=== PATIENT | female | born 1945 | race Caucasian/White ===

== ENCOUNTER 2017-01-26 09:32 | Observation (INO) | payer MEDICARE ==
[2017-01-26] VITALS (12 sets, daily range): BP systolic 89–180; BP diastolic 43–96; PULSE 63–98; RESP 14–18; O2SAT 94–97
[~2017-01-26] VITALS: Ht 160 cm; Wt 71.4 kg
--- NOTE | 2017-01-26 10:04 | DRSVH ---
PROCEDURE: X-RAY CHEST ONE VIEW, PORTABLE ([id number]) INDICATIONS: PAIN TECHNIQUE: One view of the chest was acquired. COMPARISON: None. FINDINGS: Surgical changes and devices: None. Lungs and pleura: No pleural effusions or pneumothorax. Lungs are clear. Mediastinum: Mediastinal contours appear normal. Heart size is normal. Bones and chest wall: No suspicious bony lesions. Overlying soft tissues appear unremarkable. IMPRESSION: Negative chest. No acute cardiopulmonary process is evident. Dictated by: Antonino Barney M.D. on 01/26/2017 at 9:02 Approved by: Antonino Barney M.D. on 01/26/2017 at 9:03
[2017-01-26 10:24] LABS: BASOPHILS % (AUTO) 0.7 % (0-3); MONOCYTES % (AUTO) 6.6 % (4-12); Mean Corpuscular Hemoglobin 30.6 pg (27.0-35.0); Mean Corpuscular Volume 90.6 fL (81-100); NEUTROPHILS % (AUTO) 74.3 % (40-74); Platelet Count 202 bil/L (150-400)
[2017-01-26 10:46] LABS: TROPONIN T 0.01 ug/L (0.0-0.011)
--- NOTE | 2017-01-26 10:59 | ED.REPORT ---
HPI-Chest Pain 40 and Over Date of Service January 26, 2017 ED Provider: Pam Lovell MD The patient is a 71 year old female with history of takotsubo cardiomyopathy, arthrosclerotic coronary artery disease, SVT s/p cardiac ablation, hypothyroidism, fibromyalgia, and lupus, who presents to the emergency department complaining of left shoulder pain that was present when she woke up this morning. After onset she also developed chest pressure, left arm numbness/ tingling, nausea, diaphoresis, and shortness of breath. Her pain has worsened since onset and has also started hurting between her shoulder blades, neck, and jaw. She took 2 aspirin with no relief. Nursing Notes Stated Complaint: CHEST PAIN Chief Complaint: Chest Pain Nursing Notes Reviewed: Yes Allergies: Coded Allergies: Sulfa (Sulfonamide Antibiotics) (Verified Allergy, Severe, anaphylaxis, 01/26/17) Scheduled Aspirin (Aspirin) 81 Mg Tablet 81 MG PO DAILY Levothyroxine (Levothyroxine) 25 Mcg Tablet 25 MCG PO DAILY Multivitamin (Multi Vitamin Daily) 1 Each Tablet 1 EACH PO DAILY Sertraline HCl (Zoloft) 50 Mg Tablet 25 MG PO DAILY Miscellaneous Medications Gluc/Edgard-MSM#2/C/D3/Ramez/Born (Iyuwqsenwa-Yiurhtalwko-LZP Tab) 1 Each Tablet 1 EACH PO Ubidecarenone (Co Q-10) 10 Mg Capsule 10 MG PO General Time Seen by MD: 09:57 Chief Complaint Other (left shoulder pain) Hx Obtained From: Patient Arrived By: Walk-in Sudden in Onset?: Yes Onset Occurred: 1 - 4 hours ago Symptom Duration: Since onset Location: : Shoulder left Quality: Painful Severity: Current: Moderate Severity: Maximum: Severe Recent Healthcare: No recent doctor visit, No recent hospitalization Similar Sx Previous: No Past Medical History Past Medical History Takotsubo cardiomyopathy Arthrosclerotic coronary artery disease with mild to moderate non-obstructive plaque Endometriosis s/p hysterectomy Fibromyalgia Lupus - in remission Hx of SVT and ablation Hypothyroidism Past Surgical History Hysterectomy Cardiac ablation Thyroidectomy Family History Reports: Diabetes mellitus, Hypertension Smoking History Never Smoker Social History Alcohol Use: 1-3 per week Drug Use: Denies drug use Other Social History: Local resident Occupation Office work Ambulatory Status Independent Review of Systems Review of Systems Note: +jaw pain Respiratory: Reports: Shortness of breath Cardiovascular: Reports: Chest pain GI: Reports: Nausea Musculoskeletal: Reports: Back pain, Joint pain, Neck pain Skin: Reports Diaphoresis Neurologic: Reports: Numbness (and tingling in left arm) Complete sys rev & neg: except as marked. Physical Exam Initial Vital Signs Vital Signs (First) Date Time Temp Pulse Resp B/P Pulse Ox O2 Delivery O2 Flow Rate FiO2 01/26/17 09:40 36.7 98 15 180/96 97 Room Air Initial VS: Reviewed Head / Eyes: Atraumatic, Normocephalic, PERRL ENT: Mucous membranes moist, Conjunctiva normal, No scleral icterus Neck: Supple, Non-tender, Full range of motion Lymphatic: No lymphadenopathy Extremities: Vascular intact, Neuro intact, No swelling, No tenderness Skin: Warm, Dry, No cyanosis Neurologic: Alert, Oriented, Nonfocal Psychiatric: Mood/affect normal, Behavior normal, Normal thought content General/Constitutional: Awake, Alert, No acute distress, Well appearing Respiratory / Chest: Atraumatic, Breath sounds NL, Breath sounds = bilat, No respiratory distress, No rales, No rhonchi, No wheezing, No stridor, No chest tenderness Cardiovascular: Heart rate NL, Regular rhythm, Heart sounds NL, No murmurs, Peripheral circulation NL, Pulses = bilaterally, No gross BP differential Abdomen: Soft, Non-tender, McBurney's non-tender, No guarding, No rebound, BS normoactive, No distention, No hernia, No palpable mass Interpretation & Diagnostics Lab Results Interpretation Result Diagram: 01/26/17 1010 01/26/17 1010 Test 01/26/17 10:10 White Blood Count 7.1th/mm3 (3.8-10.1) Red Blood Count 4.57mil/mm3 (3.90-5.20) Hemoglobin 14.0g/dL (12.0-15.6) Hematocrit 41.4% (35.0-46.0) Mean Corpuscular Volume 90.6fL (81-100) Mean Corpuscular Hemoglobin 30.6pg (27.0-35.0) Mean Corpuscular Hemoglobin Concent 33.8% (32.0-37.0) Red Cell Distribution Width 13.3% (12.3-15.4) Platelet Count 202bil/L (150-400) Neutrophils (%) (Auto) 74.3% (40-74) Lymphocytes (%) (Auto) 16.1% (14-46) Monocytes (%) (Auto) 6.6% (4-12) Eosinophils (%) (Auto) 2.0% (0-5) Basophils (%) (Auto) 0.7% (0-3) Sodium Level 137mEq/L (134-144) Potassium Level 4.2mEq/L (3.5-5.2) Chloride Level 99mEq/L (97-108) Carbon Dioxide Level 20mmol/L (18-29) Blood Urea Nitrogen 15mg/dL (8-27) Creatinine 0.69mg/dL (0.57-1.00) Estimat Glomerular Filtration Rate 120mL/min (>59) Glucose Level 132mg/dL (60-99) Calcium Level 9.7mg/dL (8.5-10.1) Magnesium Level 2.0mg/dL (1.6-2.6) Total Bilirubin 0.4mg/dL (0.0-1.2) Aspartate Amino Transf (AST/SGOT) 46U/L (0-50) Alanine Aminotransferase (ALT/SGPT) 55U/L (0-32) Alkaline Phosphatase 52U/L (25-165) Troponin T 0.010ug/L (0.0-0.011) Total Protein 7.0g/dL (6.4-8.4) Albumin 4.4g/dL (3.4-5.0) Hold Arriaga Top Tube Received (Received) ECG Interpretation ECG Interpretation: Sinus rhythm RBBB No acute ischemic changes Time: 09:45 Interpreted by: ED physician ECG Interpretation: Sinus rhythm with a rate of 73 PAC RBBB Recurrent pain no changes in EKG Time: 11:49 Interpreted by: ED physician X-Ray Chest Interpretation Chest Xray Interpretation: IMPRESSION: Negative chest. No acute cardiopulmonary process is evident. Dictated by: Antonino Barney M.D. on 01/26/2017 at 9:02 Interpretation / Wet Read by: Interpret - Radiologist Re-Eval/Medical Decision Med Decision/Clinical Course Records from [facility] have been reviewed 71 y/o woman with 2 prior cardiac events related to Takotsubo cardiomyopathy presents with pain behind her left scapula radiating up to the shoulder then to the jaw to the anterior chest and then associated with nausea and diaphoresis all progressive over the course of about 3 hours this morning. Her pain has completely resolved with 2 nitroglycerin. She was placed on nitro paste had some pressure returning has been started on a nitro drip and is now pain-free. She was given subcutaneous Lovenox 1/kg. Initial labs including troponin are unremarkable initial EKG has a right bundle branch block which is been present previously and no acute ischemic changes. At this point she is pain-free and needs to be admitted for additional cardiac evaluation Source of Hx: Old records Time of Eval: 11:09 Re-Evaluation/Progress Note: Her pain is completely gone after 2 nitro. Her BP did drop with the nitro and she did develop a headache. Will give nitropaste, lovenox, and 500 cc bolus. Will call hospitalist. Initial troponin is negative. Time of Eval: 11:43 Re-Evaluation/Progress Note: Light chest pressure returning with nitropaste. Consultation : Referral / Consult Name: Minerva Sanchez MD Consulted With: Hospitalist Requested Call at: 11:15 Call Returned at: 12:03 Dispatch Clerk: Will see patient, Agrees with eval, Agrees with plan, Accepts admit Counseled Regarding: Diagnosis, Lab results, Need for admission Discharge & Departure Primary Impression: Chest pain Chest pain type: unspecified Qualified Code: R07.9 - Chest pain, unspecified Disposition: ADMITTED TO HOSPITAL Discharge Condition All VS Reviewed: Yes Condition: Stable Referrals: Anisha Harris (PCP) Scribsharron Attestation Portions of this note were transcribed by Loretta Cha. I, Dr. Lovell, personally performed the history, physical exam and medical decision-making; I reviewed and confirmed the accuracy of the information in the transcribed note. Signed by: Muriel Eaton, 01/26/2017 and 1210. copies to: Anisha Harris Shawna L MD January 26, 2017 10:58 Loretta Cha January 26, 2017 11:09
[2017-01-26] MEDS ORDERED: Nitroglycerin 2% 1 Gm Ointment TOPICAL ONE ×2 (11:10→13:10)
[2017-01-26] MEDS ORDERED: LEVO25TA5 PO (11:24)
[2017-01-26] MEDS ORDERED: GLUC-123 PO (11:29)
[2017-01-26] MEDS ORDERED: UBID10CA4 PO (11:29)
[2017-01-26] MEDS ORDERED: SERT25TA2 PO (11:29)
[2017-01-26] MEDS ORDERED: MULT-1018 PO (11:29)
[2017-01-26] MEDS ORDERED: ASPI-973 PO (11:29)
[2017-01-26] MEDS ORDERED: SERT50TA PO (11:32)
[2017-01-26] MEDS ORDERED: 0.9% Sodium Chloride 1,000 ML IV ONE (11:56)
[2017-01-26] MEDS ORDERED: Nitroglycerin 50 mg/250 mL D5W 50,000 MCG in IV Premix 1 EACH IV ONE (11:56)
[2017-01-26] MEDS ORDERED: Ondansetron 2 mg/mL 2 mL Inj ONE (12:12)
[2017-01-26] MEDS ORDERED: Ondansetron 2 mg/mL 2 mL Inj IVPUSH ONE (12:15)
[2017-01-26 12:43] LABS: Creatine Kinase 72 U/L (21-215)
--- NOTE | 2017-01-26 14:05 | PCM.HPMED ---
Subjective Date of Service January 26, 2017 Primary Provider: Admitting Physician: Primary Care Physician: Anisha Harris Attending Physician: Chief Complaint: chest pain History of Present Illness: 71-year-old female with takotsubo cardiomyopathy in 2011, s/p ablation due to ? irregular heart rhythms in 2014, fibromyalgia, lupus in remission presented with excruciating left shoulder pain starting this morning Pt state that patient was in usual state of health until this morning, and 5 AM. He woke up with excruciating pain on the left shoulder. pt tried hot shower but pain progressed,radiating to her jaws, upper back between shoulder blade. pt had nausea, no vomiting, lightheaded, sweating. pt took regular strength aspirin one tab and pain continue to took second pill. pt was ready to go to work but given this persistent pain, decided to come to the hospital. Pt stated that this pain is totally different from what she had in 2012, patient stated that she had heart attack during thyroidectomy surgery, pt had enormous stress at that time. Since then, pt followed up at [facility], diagnosed akotsubo cardiomyopathy. pt had TTE around 6mo ago, was not told anything abnormal. pt can walk unlimited distance, usually walks more to 6 blocks with her dogs, didn't have any similar shoulder pain in the past. Recently pt has been some stress from her financial situation as she laid of Aug, started new job in but not particularly stressed out for the past one week. pt denied PND, orthopnea, wt gain. denied hx of blood clots, had strong Fhx of CAD, father had CABG at 61, mother had stroke. in ED, VS [id number], 15, afebrile,97 %On RA, pt got [id number] but pain continued, required nitro drip, which eventually improved her pain to zero. pt also got zofran, Nitro oint 1inch, 2inch, [id number], tylenol.labs showed first trop negative. EKG-sinus, RBBB During the interview, pt denied any pain. looked comfortable. pt denied fever, chills, n/v/c/d, urinary complaints, sick contacts, travel. PCP Anisha Harris Review of Systems: Pertinent positives as noted in history of present illness. All other systems were reviewed and are negative Allergies Coded Allergies: Sulfa (Sulfonamide Antibiotics) (Verified Allergy, Severe, anaphylaxis, 01/26/17) Home Medications CoQ [id number] daily LT4 0.25mg PMH Lupus, used to take Plaquenil until 3yrs ago, not on any meds now fibromyalgia, takes tylenol intermittently Surgical History Thyroidectomy 1 Hysterectomy Family History had strong Fhx of CAD, father had CABG at 61, mother had stroke. Social History Hx Alcohol Use: No ("very rare") Hx Substance Use: No Hx Tobacco Use: No Smoking Status: Never Smoker Additional Information lives alone in private house Exam Vital Signs Vital Sign - Last Date Time Temp Pulse Resp B/P Pulse Ox O2 Delivery O2 Flow Rate FiO2 01/26/17 11:08 78 16 89/43 94 Room Air 01/26/17 09:40 36.7 Exam NAD, comfortably laying down on the bed no JVD, MMM, no LAD RRR, nl s1, s2 no mrg CTAB, no w,c S,ND,NT,normoactive BS+ warm, no edema, pulses 2/2 Lab and Diagnostics Result Diagram: 01/26/17 1010 01/26/17 1010 X-Rays, CTs and MRIs PROCEDURE: X-RAY CHEST ONE VIEW, PORTABLE ([id number]) INDICATIONS: PAIN TECHNIQUE: One view of the chest was acquired. COMPARISON: None. FINDINGS: Surgical changes and devices: None. Lungs and pleura: No pleural effusions or pneumothorax. Lungs are clear. Mediastinum: Mediastinal contours appear normal. Heart size is normal. Bones and chest wall: No suspicious bony lesions. Overlying soft tissues appear unremarkable. IMPRESSION: Negative chest. No acute cardiopulmonary process is evident. Dictated by: Antonino Barney M.D. on 01/26/2017 at 9:02 Approved by: Antonino Barney M.D. on 01/26/2017 at 9:03 Assessment & Plan acute, active, L shoulder, POA, suddent onset with non-exertional, HEART score4, relieved with nitro. pt does have hx of stress-induced cardiomyopathy, but no strong >3risk factors of ASCVD except FHx. atypical manifestation possible given age, gender. no evidence of ACS so far. first trop neg, EKG-no st/t chg. -s/p aspirin, will do [id number], [id number] bid, [id number] bid -TTE, -serial EKG, nitro if pain recur -if pt remains stable, no active chest pain, exercise stress test tomorrow, ordered for now hx of irregular rhythms s/p ablation, POA, possibly afib or aflutter, will continue on telemetry chronic, stable hypothyroidism, coninyue LT4, check TFT FM, tylenol prn lupus, stable dispo:Patient will be admitted with inpatient status with expectation of inpatient therapy for more than 2 midnights diet:heart healthy. NPO after MN for stress test dvt ppx:LMWH Full code Time spent 65min Minerva Sanchez MD January 26, 2017 12:09
[2017-01-26 15:21] LABS: APPEARANCE,URINE HAZY (CLEAR,HAZY); COLOR,URINE STRAW (YELLOW); OCCULT BLOOD,URINE NEGATIVE (NEGATIVE); PH,URINE 7.5 (5.0-8.0)
[2017-01-26 15:22] LABS: UROBILINOGEN,URINE NORMAL (NORMAL)
[2017-01-26] MEDS ORDERED: Acetaminophen IV 1,000 mg IV ONE (17:15)
--- NOTE | 2017-01-26 17:26 | NUR ---
Admit: Patient arrived to [facility] @ approx 1615 via stretcher. Ambulated from stretcher to bed. Alert & oriented. Family at bedside. Denies chest pain, SOB, dizzy, lightheadedness. Complained of CARRINGTON 5-6/10 on pain scale. Patient has 2 1in Nitro paste applied to Rt and Lt chest. No pain medication on eMar except Morphine which patient states also gives her a CARRINGTON. Telemetry SR IVCD 67 per radiotelegraphist. notified of CARRINGTON. Order received to remove one nitro paste and give IV Tylenol x1 for CARRINGTON. Bed in low and locked position, bed rails up x 2, call light within reach.
--- NOTE | 2017-01-26 20:01 | NUR ---
Case Management: CRAFT explained to patient at 1930, all questions answered. Signed original placed in chart, copy given to patient. Pt informed me that she does not have a supplemental insurance and was worried about finances. I informed her that I will contact [facility] LAB TECHNICIAN to assist patient in am with available options and at least provide her with a Caitlin Care Form (voice message left with QC LAB TECHNICIAN). Now looking a little closer it appears patient has only Medicare Part A (not B). Leonarda Paulino RN Addendum: 01/26/17 at 2035 by LEONARDA PAULINO I: Pt states she does have Medicare Part B. Leonarda Paulino RN
[2017-01-26] MEDS ORDERED: fentaNYL-PF 50 mCg/mL 2 mL Inj IVPUSH PRN (22:05)
[2017-01-27 01:40] VITALS: BP 133/83; PULSE 57; RESP 18; O2SAT 97
[2017-01-27 05:18] VITALS: BP 145/77; PULSE 60; RESP 18; O2SAT 93
[2017-01-27 08:00] VITALS: PULSE 67
[2017-01-27 10:00] VITALS: BP 155/67; PULSE 63; RESP 18; O2SAT 93
--- NOTE | 2017-01-27 12:08 | NUR ---
Off Unit: Patient transported to [facility] via wheelchair, accompanied by [place] staff at approx 1200. audio/video technician notified. Patient denies pain at time of transport.
--- NOTE | 2017-01-27 13:34 | DRSVH ---
[facility] [address] [place] [address] Echocardiogram Report Name: KEV RAHMAN RStudy Date: 01/27/2017 Height: 63 in Hospital Exam Location: [facility] Weight: 157 lb Gender: Female BSA: 1.7 m2 : 1945 Age: 71 yrs BP: 145/77 mmHg Reason For Study: Chest pain Performed By: Richard Garcia Referring Physician: JEREL HOWELL Interpretation Summary Left ventricular ejection fraction is estimated to be 60 +/- 5%. The right ventricle is normal in size and function. There is no significant valvular heart disease. Procedure: A two-dimensional transthoracic echocardiogram with color flow and Doppler was performed. The study quality was technically adequate. There is no prior echocardiogram noted for this patient. The patient was in normal sinus rhythm during the exam. Left Ventricle: The left ventricle is normal in size, wall thickness, and systolic function without any focal wall motion abnormalities. Left ventricular ejection fraction is estimated to be 60 +/- 5%. Left ventricular wall motion is normal. Assessment of diastolic parameters indicates normal left ventricular diastolic function and normal filling pressures. Right Ventricle: The right ventricle is normal in size, thickness and function. The right ventricle is normal in size and function. Atria: Both atria are normal in size. There is no Doppler evidence for an atrial septal defect. Mitral Valve: The mitral valve is normal in structure and function. There is trace mitral regurgitation. Aortic Valve: The aortic valve is grossly normal. The aortic valve is trileaflet. There is no aortic regurgitation. Tricuspid Valve: The tricuspid valve leaflets are thin and pliable. There is trace tricuspid regurgitation. Pulmonary artery pressures cannot be estimated because of the lack of a measurable TR jet velocity. Pulmonic Valve: The pulmonic valve is not well seen, but is grossly normal. There is a trace or physiologic amount of pulmonic regurgitation. Great Vessels: The aortic root is normal size. The ascending aorta is normal in size. The aortic arch is normal in size. The IVC is of normal diameter and collapses greater than 50% with a sniff. This suggests a low right atrial pressure of 3 mm Hg. Pericardium/ Pleura There is no pericardial effusion. There is no pleural effusion. MMode/2D Measurements & Calculations LVIDd: 4.4 cm LA dimension: 3.6 cm RA long axis LVOT diam: 1.8 cm LVIDs: 3.0 cm AoV Opening FS: 31.5 % LA A2 area: 15.6 cm RA area EPSS: 0.94 cm LA A4 area: 14.9 cm Ao root diam IVSd: 0.99 cm LA length (vol) : 10.9 cm LVPWd: 0.82 cm RA vol asc Aorta Diam LA vol: 40.7 ml : 25.9 ml LA vol index RA Ao Arch Diam (Prox : 14.9 mm2 Trans): 1.7 cm IVC diam: 1.7 cm LV tse. diameter/BSA LV sys. diameter/BSA RVD1 (basal) RVD2 (mid): 2.1 cm (cm/m^2): 2.5 (cm/m^2): 1.7 TAPSE: 2.3 cm Doppler Measurements & Calculations Ao V2 max MV E max ivan MV E/A: 0.85 PA V2 max : 133.2 cm/sec : 90.4 cm/sec Med Peak E' Ivan : 70.5 cm/sec Ao max PG MV A max ivan PA mean PG : 7.1 mmHg : 106.4 cm/sec E/E' med: 13.0 Ao mean PG MV P1/2t: 73.4 msec Lat Peak E' Ivan PA Accel Time : 0.20 sec LVOT Max Ivan E/E' lat: 15.1 : 92.0 cm/sec E/e' average: 14.0 Pulm A Revs Dur RANCHO(I,D): 2.0 cm sev ratio MV A dur: 0.13 sec MV dec time MV P1/2t max ivan Ao V2 mean LV V1 max PG : 0.24 sec : 97.5 cm/sec MVA(P1/2t): 3.0 cm2 Ao V2 VTI: 31.5 cm LV V1 VTI RANCHO(V,D): 1.8 cm2 : 24.1 cm PA V2 mean RANCHO indexed to BSA Pulm A Revs Dur - MV A : 49.5 cm/sec (cm^2/m^2): 1.1 Dur: -0.01 msec PA pr(Accel) : -11.8 mmHg Electronically signed by: Estuardo jean [place] Physician:01/27/2017 01:33 PM
--- NOTE | 2017-01-27 14:39 | DRSVH ---
PROCEDURE: 1 DAY TREADMILL STRESS TEST Rest and exercise myocardial perfusion SPECT with gated imaging and ejection fraction RADIOPHARMACEUTICAL: 8.2 mCi Tc-99m tetrafosmin IV at rest and 25.2 mCi Tc-99m tetrafosmin IV at pea k exercise. Wod-iar-avkiwjvb was performed. INDICATIONS: Chest pain. TECHNIQUE: Radiopharmaceutical was injected at peak stress test, and also at rest. SPECT images wer e obtained. SPECT myocardial perfusion images were displayed in short axis, horizontal long axis, an d vertical long axis views. Gated images were reviewed using AutoQUANT software. COMPARISON: None. CARDIAC STRESS: A standard Blade treadmill exercise tolerance test was performed by the patient under the supervision of an attending staff. The patient exercised for 4 minutes and 30 seconds; functional aerobic impai rment (CARMEN) is +19%. Hemodynamic data: There is normal blood pressure and heart rate response to exercise stress. Patien t achieved 85% of maximum predicted heart rate at peak exercise. Symptoms: Patient denied chest pain during exercise. EKG: Baseline EKG demonstrated right bundle branch block with sinus rhythm. Stress EKG demonstrated n o diagnostic EKG changes of ischemia. Rare PACs noted. FINDINGS: Raw data: There is good myocardial labeling by radiotracer. No significant motion artifacts. Left ventricle function: Gated images demonstrate normal left ventricle wall thickening. No segment al wall motion abnormality. No subjective evidence of transient ischemic dilation. The left ventric le resting end-diastolic volume is 34 mL. Left ventricle stress ejection fraction is 97%; normal tamar ues are above 45%. Myocardial perfusion: There is normal distribution of activity in the left and right ventricular lisa cardium. No fixed or reversible perfusion defects. IMPRESSION: 1. Normal myocardial perfusion study with no fixed or reversible perfusion defects. 2. Normal left ventricular function with no segmental wall motion abnormalities and a normal stress L VEF. 3. Reduced exercise capacity with functional aerobic impairment of +19%. PQRS ATTESTATIONS: Measure 322 - Is this imaging test primarily performed on a low-risk surgery patient for preoperative evaluation within 30 days preceding their low-risk non-cardiac surgery? Low-risk surgery is defined as cardiac or myocardial infarction less than 1%, including (but not limited to) endoscopic pr ocedures, superficial procedures, cataract surgery, and excisional breast surgery: Answer: No Measure 323 - Is this imaging test performed primarily for the monitoring of an asymptomatic patient who had percutaneous coronary intervention on the visit date or within 2 years of the visit date? An swer: No Measure 324 - Is this imaging test performed primarily for the initial detection and risk assessment on an asymptomatic, low coronary heart disease patient? Low CHD risk definition = clinicians should consider the maximum number of available patient factors used to estimate risk based on [place] (A TP III criteria), typically age, gender, diabetes, smoking status, and use of blood pressure medicati on, and integrate age appropriate estimates for missing elements, such as LDL or standard blood press ure. Answer: No Dictated by: Ashley Cristina MD, PhD on 01/27/2017 at 14:34 Approved by: Ashley Cristina MD, PhD on 01/27/2017 at 14:38
--- NOTE | 2017-01-27 16:17 | NUR ---
Social Work: Initial Assessment / Readiness for d/c Data: Pt is a 71 y/o female admitted for chest pain. Pt's PCP is Dr Harris, pt's insurance is Medicare. EMR reviewed. Readmit score is 3. SAFETY BELT INSTALLER met with pt at bedside, role explained. Pt states she lives alone in [place] where she uses no DME. Pt drives, has no hx of HH or SNF, no LTC or VA benefits, is not a caregiver. No d/c planning needs at this time. MD states pt likely to d/c home pending stress test result. SAFETY BELT INSTALLER will continue to follow if needs arise. Assessment: Pt who is independent at baseline. Plan: Pt will d/c home via POV when medically stable, possibly today. No d/c planning needs at this time. MD states pt likely to d/c home pending stress test result. SAFETY BELT INSTALLER will continue to follow if needs arise. KURT Edwards Addendum: 01/27/17 at 1621 by GAMA OCONNELL Amended: Links added.
[2017-01-27 16:45] VITALS: BP 154/75; PULSE 79; RESP 18; O2SAT 96
--- NOTE | 2017-01-27 16:45 | PCM.DIMED ---
Discharge Instructions Date of Service January 27, 2017 Dates of Hospitalization January 26, 2017 at 15:11 Discharge Diagnosis Discharge Diagnosis chest pain, not cardiac origin Diet No restrictions Activity No restrictions Call your provider Shortness of breath, Chest pain Patient Instructions You were hospitalized with severe shoulder pain, nausea, lightheadedness, which was concerning for heart attack. You underwent stress test, which didn't show any evidence of heart attack. echocardiogram also showed that your heart function is good. Please follow with your primary doctor in 2 weeks Follow-up Provider: Anisha Harris Follow-up with PCP in: 2 weeks Minerva Sanchez MD January 27, 2017 16:45
--- NOTE | 2017-01-27 17:58 | NUR ---
Discharge: Patient discharged to home @ approx 1730. IV d/c'd intact, telemetry removed, surveillance system monitor notified. Personal belongings sent home with patient. Reviewed home medication list, d/c instructions and follow up appointments. Verbalized understanding. Patient ambulated to main entrance accompanied by RN and patient daughter. No apparent distress noted at time of discharge.
--- NOTE | 2017-01-28 11:29 | PCM.DC.MED ---
Discharge Summary Date of Service January 27, 2017 Dates of Hospitalization Date of Hospital Admission January 26, 2017 at 15:11 Date of Discharge: January 27, 2017 Providers: Admitting Physician: Minerva Sanchez MD Primary Care Physician: Anisha Harris Attending Physician: Minerva Sanchez MD Diagnosis at Time of Discharge Diagnosis at Time of Discharge Lt shoulder/chest pain, not cardiac origin hx of irregular rhythms s/p ablation, POA, possibly ?SVT or afib or aflutter, hypothyroidism, coninyue LT4, euthyroid state. FM lupus Procedures XRay, CTs & MRIs PROCEDURE: X-RAY CHEST ONE VIEW, PORTABLE ([id number]) INDICATIONS: PAIN TECHNIQUE: One view of the chest was acquired. COMPARISON: None. FINDINGS: Surgical changes and devices: None. Lungs and pleura: No pleural effusions or pneumothorax. Lungs are clear. Mediastinum: Mediastinal contours appear normal. Heart size is normal. Bones and chest wall: No suspicious bony lesions. Overlying soft tissues appear unremarkable. IMPRESSION: Negative chest. No acute cardiopulmonary process is evident. Dictated by: Antonino Barney M.D. on 01/26/2017 at 9:02 Approved by: Antonino Barney M.D. on 01/26/2017 at 9:03 Brief History HPI obtained on 12/27 71-year-old female with takotsubo cardiomyopathy in 2011, s/p ablation due to ? irregular heart rhythms in 2014, fibromyalgia, lupus in remission presented with excruciating left shoulder pain starting this morning Pt state that patient was in usual state of health until this morning, and 5 AM. He woke up with excruciating pain on the left shoulder. pt tried hot shower but pain progressed,radiating to her jaws, upper back between shoulder blade. pt had nausea, no vomiting, lightheaded, sweating. pt took regular strength aspirin one tab and pain continue to took second pill. pt was ready to go to work but given this persistent pain, decided to come to the hospital. Pt stated that this pain is totally different from what she had in 2012, patient stated that she had heart attack during thyroidectomy surgery, pt had enormous stress at that time. Since then, pt followed up at [facility], diagnosed akotsubo cardiomyopathy. pt had TTE around 6mo ago, was not told anything abnormal. pt can walk unlimited distance, usually walks more to 6 blocks with her dogs, didn't have any similar shoulder pain in the past. Recently pt has been some stress from her financial situation as she laid of Aug, started new job in but not particularly stressed out for the past one week. pt denied PND, orthopnea, wt gain. denied hx of blood clots, had strong Fhx of CAD, father had CABG at 61, mother had stroke. in ED, VS PF302a,98, 15, afebrile,97 %On RA, pt got [id number] but pain continued, required nitro drip, which eventually improved her pain to zero. pt also got zofran, Nitro oint 1inch, 2inch, [id number], tylenol.labs showed first trop negative. EKG-sinus, RBBB During the interview, pt denied any pain. looked comfortable. pt denied fever, chills, n/v/c/d, urinary complaints, sick contacts, travel. PCP Anisha Harris Hospital Course acute dx L shoulder, POA, suddent onset with non-exertional, HEART score4, pain greatly relieved with nitro. However, there was no evidence of ACS, serial trops neg, EKG-no st/t chg. pt does have hx of stress-induced cardiomyopathy, but no strong >3risk factors of ASCVD except FHx. Given possibility of atypical manifestation of ACS, possible given age, gender. intermediate risks, Stress test was performed which showed no perfusion defect. pt received aspirin, iipofnh12, [id number] bid, [id number] bid. TTE also was unremarkable. pt was asymptomatic, deemed safe for d/c chronic, stable hx of irregular rhythms s/p ablation, POA, possibly ?SVT or afib or aflutter, no event noted on telemetry, remained in sinus. hypothyroidism, coninyue LT4, euthyroid state. FM, tylenol prn lupus, stable Exam Vital Signs (Last) Date Time Temp Pulse Resp B/P Pulse Ox O2 Delivery O2 Flow Rate FiO2 01/27/17 16:45 36.6 79 18 154/75 96 Room Air Exam NAD, comfortably laying down on the bed no JVD, MMM, no LAD RRR, nl s1, s2 no mrg CTAB, no w,c S,ND,NT,normoactive BS+ warm, no edema, pulses 2/2 Test 01/26/17 10:10 01/26/17 13:52 01/26/17 15:05 01/26/17 15:55 White Blood Count 7.1th/mm3 (3.8-10.1) Red Blood Count 4.57mil/mm3 (3.90-5.20) Hemoglobin 14.0g/dL (12.0-15.6) Hematocrit 41.4% (35.0-46.0) Mean Corpuscular Volume 90.6fL (81-100) Mean Corpuscular Hemoglobin 30.6pg (27.0-35.0) Mean Corpuscular Hemoglobin Concent 33.8% (32.0-37.0) Red Cell Distribution Width 13.3% (12.3-15.4) Platelet Count 202bil/L (150-400) Neutrophils (%) (Auto) 74.3% (40-74) Lymphocytes (%) (Auto) 16.1% (14-46) Monocytes (%) (Auto) 6.6% (4-12) Eosinophils (%) (Auto) 2.0% (0-5) Basophils (%) (Auto) 0.7% (0-3) Sodium Level 137mEq/L (134-144) Potassium Level 4.2mEq/L (3.5-5.2) Chloride Level 99mEq/L (97-108) Carbon Dioxide Level 20mmol/L (18-29) Blood Urea Nitrogen 15mg/dL (8-27) Creatinine 0.69mg/dL (0.57-1.00) Estimat Glomerular Filtration Rate 120mL/min (>59) Glucose Level 132mg/dL (60-99) Calcium Level 9.7mg/dL (8.5-10.1) Magnesium Level 2.0mg/dL (1.6-2.6) Total Bilirubin 0.4mg/dL (0.0-1.2) Aspartate Amino Transf (AST/SGOT) 46U/L (0-50) Alanine Aminotransferase (ALT/SGPT) 55U/L (0-32) Alkaline Phosphatase 52U/L (25-165) Total Creatine Kinase 72U/L (21-215) Creatine Kinase MB 2.3ng/mL (0.0-5.3) Creatine Kinase MB % % (0.0-5.0) Total Protein 7.0g/dL (6.4-8.4) Albumin 4.4g/dL (3.4-5.0) Hold Arriaga Top Tube Received (Received) Hold Urine Received (Received) Urine Color Straw (YELLOW) Urine Appearance Hazy (CLEAR,HAZY) Urine pH 7.5 (5.0-8.0) Urine Specific [place]lett 1.005 (1.003-1.035) Urine Protein Negativemg/dL (NEG,TRACE) Urine Glucose (UA) Negativemg/dL (NEGATIVE) Urine Ketones Negativemg/dL (NEGATIVE) Urine Occult Blood Negative (NEGATIVE) Urine Nitrite Negative (NEGATIVE) Urine Bilirubin Negative (NEGATIVE) Urine Urobilinogen Normalmg/dL (NORMAL) Urine Leukocyte Esterase Negative (NEGATIVE) Urine RBC 0-2/hpf (0-2) Urine WBC 0-5/hpf (0-5) Urine Epithelial Cells Occasional/hpf (NONE-MOD) Urine Crystals None seen (NONE SEEN) Urine Bacteria Few/hpf (NONE-FEW) Urine Hyaline Casts None/lpf (NONE) Urine Granular Casts None seen (NONE SEEN) Urine Waxy Casts None seen (NONE SEEN) Urine Red Blood Cell Casts None seen (NONE SEEN) Urine White Blood Cell Casts None seen (NONE SEEN) Urine Mucus None seen (None Seen) Urine Trichomonas None seen (NONE SEEN) Urine Yeast None (NONE SEEN) Urinalysis Comment Transitional epi Urine Culture Reflexed Not indicated Troponin T < 0.010ug/L (0.0-0.011) Discharge Medications Discharge Medications Aspirin (Aspirin) 81 Mg Tablet 81 MG PO DAILY (Reported) Levothyroxine (Levothyroxine) 25 Mcg Tablet 25 MCG PO DAILY (Reported) Multivitamin (Multi Vitamin Daily) 1 Each Tablet 1 EACH PO DAILY (Reported) Sertraline HCl (Zoloft) 50 Mg Tablet 25 MG PO DAILY (Reported) Miscellaneous Medications Gluc/Edgard-MSM#2/C/D3/Ramez/Born (Equubfovnb-Bdldaevukxx-TZG Tab) 1 Each Tablet 1 EACH PO (Reported) Ubidecarenone (Co Q-10) 10 Mg Capsule 10 MG PO (Reported) Followup Plan Disposition: home Discharge Diet: No restrictions Discharge Activity: No restrictions Patient Instructions You were hospitalized with severe shoulder pain, nausea, lightheadedness, which was concerning for heart attack. You underwent stress test, which didn't show any evidence of heart attack. echocardiogram also showed that your heart function is good. Please follow with your primary doctor in 2 weeks Follow-up Provider: Anisha Harris Follow-up with PCP in: 2 weeks Time spent 65min Minerva Sanchez MD January 27, 2017 22:07
== END 2017-01-27 17:23 | disposition home or self-care (01) ==
LOC: SED 09:32 → MPC 12:39 → UNDOADMOB 12:39 → MPC 15:11
PROVIDERS: ADMIT Internal Medicine; ATTEND Internal Medicine
DX: R07.89 Other chest pain (principal); M25.512 Pain in left shoulder; I49.9 Cardiac arrhythmia, unspecified; E03.9 Hypothyroidism, unspecified; L93.0 Discoid lupus erythematosus; M79.7 Fibromyalgia; I51.81 Takotsubo syndrome; I25.10 Atherosclerotic heart disease of native coronary artery without angina pectoris; N80.9 Endometriosis, unspecified; Z79.82 Long term (current) use of aspirin
CPT/HCPCS: 36415; 71010; 78452; 80053; 81000; 82550; 82553; 83735; 84484; 85025; 93005; 93017; 96361; 96372; 96374; 96375; 99285; A9502; C8929; G0378; J0131; J1650; J2405; J3010; J7030

== ENCOUNTER 2017-04-12 11:49 | Day surgery (SDC) | payer MEDICARE ==
[~2017-04-12] VITALS: Ht 160 cm; Wt 71.0 kg
[~2017-04-12 11:49] MED LIST: ASPI-973 PO; CALC1TAB23 PO; GLUC-123 PO; LEVO25TA5 PO; MULT-1018 PO; SERT50TA PO; UBID10CA4 PO; VIT1TABL83 PO
[2017-04-12] MEDS ORDERED: Propofol 10,000 mCg/mL 20 mL Inj ONE (11:50)
[2017-04-12 12:03] VITALS: BP 148/88; PULSE 70; RESP 16; O2SAT 99
[2017-04-12] MEDS: Lactated Ringer's 1,000 ML IV SCH ×2 (12:34→12:53)
[2017-04-12] MEDS ORDERED: Lactated Ringer's 1,000 ML IV SCH (12:34)
--- NOTE | 2017-04-12 12:34 | PCM.HPANE ---
Patient Data Date of Service: Apr 12, 2017 Surgeon Admitting Provider: Attending Provider:Evonne Hurt MD Primary Care Physician:Anisha Harris Other Provider:Ottoniel Maria Anesthesia Reason for Visit Nausea/Vomiting Ht/WT & BMI Height (Feet): 5 Height (Inches): 3 Weight (Kilograms): 71 Body Mass Index 27.00 Allergies Coded Allergies: Sulfa (Sulfonamide Antibiotics) (Verified Allergy, Severe, anaphylaxis, 01/26/17) verapamil (Verified Allergy, Severe, anaphylaxis, 04/11/17) Vjtcdxk-Yaf-Ibw Reductase Inhibitor (Verified Allergy, Mild, hives, ) gabapentin (Verified Allergy, Mild, rash, 04/11/17) Past Anesthesia History Anesthesia History: Denies:: Abnormal Airway, Anesthesia Reactions, Difficult Intubation, Fam Anesthesia Reaction, Fam Malignant Hypertherm, Malignant Hyperthermia Diabetes History Hx Diabetes?: No MRSA MRSA: No Medications Blood Thinner: Aspirin Last Dose Blood Thinner: Apr 05, 2017 Home Meds Incl Beta Eitan: No Reported Medications Calcium Carbonate/Vitamin D3 (Os-Gerson 500+D3 Caplet)500 Mg-600 Tablet1 Each PO DAILY 04/11/17 Vit B Comp/C/FA/Iron/Vit E (Vitamin B Complex Tablet)1 Each Tablet1 Each PO DAILY 04/11/17 Sertraline HCl (Zoloft)50 Mg Iqwajt45 Mg PO DAILY 30 Days Ref 0 01/26/17 Ubidecarenone (Co Q-10)10 Mg Zgvmtjj84 Mg PO 01/26/17 Gluc/Edgard-MSM#2/C/D3/Ramez/Born (Zdjgynfcfr-Hnouzcrkptp-NOV Tab)1 Each Tablet1 Each PO 01/26/17 Multivitamin (Multi Vitamin Daily)1 Each Tablet1 Each PO DAILY 30 Days Ref 0 01/26/17 Aspirin 81 Mg Tmhpgg15 Mg PO DAILY Ref 0 01/26/17 Levothyroxine 25 Mcg Osayyg08 Mcg PO DAILY Ref 0 01/26/17 History History of ENT Problems?: No HEENT History: Denies:: Abnormal Airway Cataracts Difficult Intubation Dysphagia Glaucoma Hearing Problem Sinus Problem TMJ Denture Type: None Teeth Condition: Missing Teeth Hx of Heart Problems?: Yes Cardiovascular History: Positive for:: Chest Pain Irregular Heartbeat (tachycardia s/p ablation) Denies:: Cardiac Surgery Congestive Heart Failure Edema Heart Murmur Hypertension Pacemaker Thrombophlebitis Hx of Respiratory Problem?: No Respiratory History: Denies:: Asthma COPD Chest Surgery Cough Dyspnea Emphysema Hemoptysis Oxygen Administration Pneumonia Pulmonary Embolism Tuberculosis Use of C-PAP Machine Use of Inhalers / NEBS Hx Neurologic Problems?: No Neurological History: Positive for:: Seizures (pre diagnosis of lupus) Denies:: CVA Dizziness Headaches Parkinson's Disease Hx of GI Problems?: No Hx of Problems?: No Genitourinary History: Denies:: Kidney Stones Urinary Tract Infection Female Hx: Positive for:: Endometriosis (s/p hysterectomy) Denies:: Pelvic Inflammatory Problems with Breasts? Hx Musculoskeletal Problems?: Yes Musculoskeletal History: Positive for:: Fibromyalgia (LUPUS) Denies:: Back Injury Joint Replacement Hx of Psycho/Social Problems?: No Psycho Social History: Positive for:: Anxiety Hx Depression Denies:: Bipolar Disorder Hx Surgeries?: Yes (C-SECT, HYST, THYROID, ) Hx Any Other Health Problems?: Yes Other History: Positive for:: Hospitalization Thyroid Disease Denies:: Cancer History Blood Transfusions: Denies:: Blood Transfusions Hx Diabetes: No Hx Alcohol Use: Yes (1-2 / MONTH)Hx Substance Use: No Smoking Status: Never Smoker Have You Smoked inLast 12 mo: No Stop/Bang Treated for Sleep Apnea?: No S-Snoring: Do You Snore Loudly: No T-Tired: feel tired, fatigued: Yes O-Obsered: Observed not breath: No P-Blood Pressure: treated: No B- Body Mass Index > 35 kg/m2: No A- Age over 50: Yes N- Neck Large Circumference: No G- Gender Male: No ANGUS Total Score: 2 ANGUS Risk Assessment: Low Risk, <3 Yes Risk Assessment Category Category 1A: Patient has history of documented sleep apnea, and HAS NOT received any narcotic, sedative or anesthesia administration during this stay. Category 1B: Patient has history of documented sleep apnea, and HAS received any narcotic , sedative or anesthesia administration during this stay Category 2: Patient has SUSPECTED Obstructive Sleep Apnea, and HAS received any narcotic , sedative or anesthesia administration during this stay. Category 3: Patient has SUSPECTED Obstructive Sleep Apnea and HAS NOT received narcotic, sedative or anesthesia administration during this stay. Category 4: Outpatient in Procedural Areas with known sleep apnea or who screen positive for High Risk via the STOP/BANG questionnaire. Exam Exam Vital Signs Vital Signs Date Time Temp Pulse Resp B/P Pulse Ox O2 Delivery O2 Flow Rate FiO2 04/12/17 12:03 36.2 70 16 148/88 99 Room Air General Appearance: Alert, Oriented X3, Cooperative, No Acute Distress HEENT/AIRWAY: MP 2 Lungs: Normal Air Movement Heart: Exam Unremarkable Plan Impression Patient chart reviewed, patient interviewed and anesthestic plan with risks, benefits, and alternatives discussed, and informed consent obtained. ASA Physical Status: ASA2 Mod Systemic Disease Anesthetic Plan: MAC Bene/Risks/Altern/Consents: Yes HP Complete Prior to Induction: Yes Bam Melgoza MD Apr 12, 2017 12:34
[2017-04-12] MEDS ORDERED: Ondansetron 2 mg/mL 2 mL Inj IVPUSH PRN (12:35)
[2017-04-12] MEDS ORDERED: MetoCLOpramide 5 mg/mL 2 mL Inj IVPUSH PRN (12:35)
[2017-04-12 13:00] VITALS: BP 139/70; PULSE 65; RESP 16; O2SAT 96
--- NOTE | 2017-04-12 13:03 | PCM.ANEP1 ---
Post Anesthesia PACU Phase 1 Assessment Date of Service: Apr 12, 2017 Vital Signs Vital Signs Date Time Temp Pulse Resp B/P Pulse Ox O2 Delivery O2 Flow Rate FiO2 04/12/17 13:00 36.3 65 16 139/70 96 Room Air 04/12/17 12:03 36.2 70 16 148/88 99 Room Air Anesthetic Administered: MAC Level of Alertness: Awake, talking LANIER's with Equal Strength: Yes Pain: No Nausea or Vomiting: No CV Function & Hydration Stable: Yes Airway Device: Oxygen Delivery: Room Air Lungs: Normal Air Movement Dermatome Level: Full Sensation PACU Phase 2 Assessment Complications: No Follow up Care: N/A Patient Instructions Provided: N/A Bam Melgoza MD Apr 12, 2017 13:03
[2017-04-12 13:11] VITALS: BP 148/78; PULSE 62; RESP 16; O2SAT 95
[2017-04-12 13:17] VITALS: BP 156/80; PULSE 65; RESP 16; O2SAT 97
--- NOTE | 2017-04-12 13:23 | ENDO ---
[address] [address] ENDOSCOPY PROCEDURE PATIENT: KEV RAHMAN : 1945 MR#: [id number] ADMIT: 04/12/2017 JOB ID: [id number] DATE: 04/12/2017 PRE-PROCEDURE DIAGNOSIS: Nausea and vomiting. POSTPROCEDURE DIAGNOSIS: Nausea and vomiting. PROCEDURE PERFORMED: Upper endoscopy with biopsies. SURGEON: Evonne Hurt M.D. HISTORY OF PRESENT ILLNESS: This is a 71-year-old woman who had an episode of nausea and vomiting, epigastric discomfort, and left shoulder pain. She underwent thorough workup and was found to have no cardiac cause for her symptoms, although she does have a history of Takotsubo syndrome. An abdominal ultrasound was performed and she had cholelithiasis. However, she did not have typical symptoms of classic biliary colic, and for this reason, upper endoscopy was indicated to evaluate the cause of her nausea and vomiting. FINDINGS: 1. Small sliding hiatal hernia with squamocolumnar junction at 39 cm and a diaphragmatic hiatus at 40.5 cm. 2. Mild inflammation at the GE junction, biopsied. DESCRIPTION OF PROCEDURE: The patient was brought to the endoscopy suite, and placed in the left lateral decubitus position. A bite block was placed. Anesthesia was induced by the jumpbasting canvas baster given her history of Takotsubo syndrome. The endoscope was advanced into the esophagus, stomach, into the proximal third portion of the duodenum. The duodenum was normal. The entire stomach was normal, with the exception of a small hiatal hernia and a Hill grade 2 flap valve. There was LA grade A esophagitis, and the squamocolumnar junction was biopsied. There were no abnormalities within the esophagus. The endoscope was removed. The patient tolerated the procedure well. COMPLICATIONS: None. ESTIMATED BLOOD LOSS: 2 mL. SPECIMENS: GE junction.
--- NOTE | 2017-04-13 15:08 | PATH ---
SURGICAL PATHOLOGY Attending Physician:Evonne Hurt MD CASE STATUS: Signed Out PATIENT NAME: KEV RAHMAN PID: [id number] : 1945 DATE COLLECTED:04/12/2017 21:58 SPECIMEN: Esophagus, Biopsy CLINICAL HISTORY: VOMITING, EPIGASTRIC PAIN, GE JUNCTION EROSION 1). GE JUNCTION BIOPSY FINAL DIAGNOSIS: GE Junction, Biopsy: Gastroesophageal junction with very focal active esophagitis and markedly increased eosinophils within the squamous mucosa. Negative for intestinal metaplasia. Negative for dysplasia and malignancy. A fungal stain is pending; results will be reported as an addendum. Please see comment. ICD10: K20.9 NOTE: Sections demonstrate increased eosinophils within the squamous mucosal component (greater than 100 eosinophils per high-power field). The differential diagnosis includes reflux esophagitis, eosinophilic esophagitis, and proton pump inhibitor-responsive esophageal eosinophilia, in the appropriate clinical and imaging setting. GROSS DESCRIPTION: Received in formalin, labeled with the patient' s name and "GE junction BX", are two fragments of man, soft tissue ranging in size from 0.1 x 0.1 x 0.1 cm to 0.2 x 0.1 x 0.1 cm. All fragments are totally submitted in one cassette. (RL:[id number]) ICD-9 CODES: CPT CODES: 1: 81158, 11007, 27058 PROCEDURE/ADDENDA: Immunohistochemistry SPI Interpretation {Not Entered} Results-Comments 1. GASTROESOPHAGEAL JUNCTION, BIOPSY:NEGATIVE FOR FUNGAL ORGANISMS BY PAS STAIN. The control tissue stained appropriately. Electronically Signed Out Cammie Hughes MD Electronically Signed Out Cammie Hughes MD [facility] Pathology [facility] [address], [place] [address] Technical component performed at [facility], [facility] [address], [place], [address]
== END 2017-04-12 23:59 | disposition home or self-care (01) ==
LOC: END 11:49
PROVIDERS: ATTEND Surgery
DX: K20.9 Esophagitis, unspecified (principal); K44.9 Diaphragmatic hernia without obstruction or gangrene; R11.2 Nausea with vomiting, unspecified; R07.89 Other chest pain; M79.7 Fibromyalgia; F41.9 Anxiety disorder, unspecified; Z79.82 Long term (current) use of aspirin; Z79.899 Other long term (current) drug therapy; Z88.2 Allergy status to sulfonamides; Z88.8 Allergy status to other drugs, medicaments and biological substances
CPT/HCPCS: 43239; 88305; 88313; G0500; J7120